=== PATIENT | male | born 1965 | race Caucasian/White ===

== ENCOUNTER → 2017-12-18 03:04 | Outpatient (CLI) | payer BC, SELFPAY ==
[2017-12-18 09:15] LABS: Cholesterol 183 mg/dL (50-200); HDL Cholesterol 35 mg/dL (40-60); LDL CHOLESTEROL 114 mg/dL (<100); Triglyceride 268 mg/dL (30-150)
== END ==
PROVIDERS: PCP Nurse Practitioner; Visit Provider Nurse Practitioner
DX: E78.5 Hyperlipidemia, unspecified (principal); I10 Essential (primary) hypertension
CPT/HCPCS: 36415; 80061; 83721

== ENCOUNTER 2019-02-21 02:18 | Outpatient (CLI) | payer BC, SELFPAY ==
[2019-02-21 07:38] LABS: Hemoglobin A1C 5.4 % (4.5-6.2)
[2019-02-21 07:55] LABS: ALT 42 U/L (16-63); AST 19 U/L (15-37); Albumin 4.2 g/dL (3.4-5.0); Alkaline Phosphatase 54 U/L (46-116); BUN 18 mg/dL (7-18); Bilirubin, Total 0.7 mg/dL (0.2-1.0); CREATININE 1.14 mg/dL (0.70-1.30); Calcium 9.8 mg/dL (8.5-10.1); Calculated LDL 115 mg/dL; Chloride 103 mmol/L (98-107); Cholesterol 194 mg/dL (50-200); Glucose 106 mg/dL (70-100); HDL Cholesterol 39 mg/dL (40-60); Potassium 3.8 mmol/L (3.5-5.1); Sodium 143 mmol/L (136-145); Total Protein 7.4 g/dL (6.4-8.2); Triglyceride 200 mg/dL (30-150)
== END 2019-02-21 02:38 ==
PROVIDERS: PCP Nurse Practitioner; Visit Provider Nurse Practitioner
DX: R73.01 Impaired fasting glucose (principal); I10 Essential (primary) hypertension; E78.5 Hyperlipidemia, unspecified; E66.9 Obesity, unspecified
CPT/HCPCS: 36415; 80053; 80061; 83036

== ENCOUNTER 2020-06-03 02:57 | Outpatient (CLI) | payer BC, SELFPAY ==
[2020-06-03 07:54] LABS: Hemoglobin A1C 5.3 % (<5.7)
[2020-06-03 08:11] LABS: ALT 43 U/L (16-63); AST 20 U/L (15-37); Albumin 4.2 g/dL (3.4-5.0); Alkaline Phosphatase 50 U/L (46-116); BUN 15 mg/dL (7-18); Bilirubin, Total 0.9 mg/dL (0.2-1.0); CREATININE 1.1 mg/dL (0.70-1.30); Calcium 9.7 mg/dL (8.5-10.1); Calculated LDL 113 mg/dL (<100); Chloride 104 mmol/L (98-107); Cholesterol 191 mg/dL (<200); Glucose 111 mg/dL (74-106); HDL Cholesterol 42 mg/dL (40-60); Potassium 3.7 mmol/L (3.5-5.1); Sodium 141 mmol/L (136-145); Total Protein 7.5 g/dL (6.4-8.2); Triglyceride 182 mg/dL (<150)
== END 2020-06-03 02:58 | disposition home or self-care (01) ==
LOC: LBO 02:57
PROVIDERS: PCP Nurse Practitioner; Visit Provider Nurse Practitioner
DX: I10 Essential (primary) hypertension (principal); E78.5 Hyperlipidemia, unspecified; R73.01 Impaired fasting glucose
CPT/HCPCS: 36415; 80053; 80061; 83036

== ENCOUNTER 2021-01-12 11:25 | Outpatient (CLI) | payer BC, SELFPAY ==
--- NOTE | 2021-01-12 11:15 | RT.EKG_ITS ---
APPROVED REPORT Exam: Resting ECG Reason for Exam: irregular heart rate. Patient Location: O HR:134 bpm ECG Measurements Heart Rate 134 AXIS NC [id number] P [id number] QRSd 92 QRS 14 QT 278 T 59 QTc 416 Conclusion Atrial fibrillation...V-rate 109-163, irreg A-activity Repol abnrm suggests ischemia, diffuse leads...ST-T neg, ant/lat/inf
== END 2021-01-12 11:26 | disposition home or self-care (01) ==
LOC: DI.KIM 11:26
PROVIDERS: PCP Nurse Practitioner; Visit Provider Nurse Practitioner
DX: I49.9 Cardiac arrhythmia, unspecified (principal)
CPT/HCPCS: 93010

== ENCOUNTER 2024-04-10 04:31 | Outpatient (CLI) | payer BC, SELFPAY ==
[2024-04-10 07:13] LABS: HCT 44.1 % (40.0-50.0); HGB 15.3 g/dL (13.5-17.5); MCH 31.6 pg (27.0-33.0); MCHC 34.7 % (32.0-36.0); MCV 91 fL (80-95); Platelet Count 205 10^3/uL (130-400); RBC 4.84 10^6/uL (4.36-5.78); RDW-SD 40.4 fL; WBC 8.07 10^3/uL (4.4-10.8)
[2024-04-10 07:47] LABS: ALT 29 U/L (16-63); AST 20 U/L (15-37); Alkaline Phosphatase 65 U/L (46-116); Anion Gap 2.1 mmol/L (3-11); BUN 16 mg/dL (7-18); Bilirubin, Total 0.82 mg/dL (0.2-1.0); CO2 28.9 mmol/L (21.0-32.0); CREATININE 1.1 mg/dL (0.70-1.30); Calcium 9.1 mg/dL (8.5-10.1); Calculated LDL 127 mg/dL (<100); Chloride 106 mmol/L (98-107); Cholesterol 200 mg/dL (<200); Estimated GFR 77.33 (mL/min/1.73m2); Glucose 111 mg/dL (74-106); HDL Cholesterol 45 mg/dL (40-60); Hemoglobin A1C 5.4 % (<5.7); Potassium 3.7 mmol/L (3.5-5.1); Sodium 137 mmol/L (136-145); Total Protein 7.7 g/dL (6.4-8.2); Triglyceride 144 mg/dL (<150)
== END 2024-04-10 04:32 | disposition home or self-care (01) ==
LOC: LBO 04:31
PROVIDERS: PCP Nurse Practitioner; Visit Provider Nurse Practitioner
DX: E78.5 Hyperlipidemia, unspecified (principal); I10 Essential (primary) hypertension; E66.9 Obesity, unspecified
CPT/HCPCS: 36415; 80053; 80061; 85027; 83036

== ENCOUNTER 2024-09-24 09:38 | Day surgery (SDC) | payer BC, SELFPAY ==
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
--- NOTE | 2024-09-23 19:36 | W.PM.DSUDISC ---
Date of service: 09/24/24 Discharge Plan Disposition Patient Disposition: Home Condition: Good Discharge Details Reason For Visit: umbilical hernia repair Attending Provider: Bigg Beyer Primary Care Provider: Poonam Holden Home Meds and New Rx's Prescriptions: New tramadol 50 mg tablet 50 mg PO Q8H PRNQty: 12 0RF Rx Instructions: Take 1 tablet by mouth up to every 8 hours if needed for more severe pain. Continued omega-3 fatty acids [Fish Oil Concentrate] 1,000 mg capsule 2,000 mg PO DAILY fluticasone propionate 50 mcg/actuation spray,suspension 2 spray NS BID Qty: 1 12RF amlodipine 10 mg tablet 10 mg PO DAILY Qty: 90 3RF lisinopril 40 mg tablet 40 mg PO DAILY Qty: 90 3RF multivitamin [Daily Vitamin] 1 EACH tablet 1 ea PO DAILY sotalol 160 mg tablet 160 mg PO BID Patient Comments: 03/25/22 Dr Patel aspirin 325 mg tablet,delayed release (DR/EC) 325 mg PO DAILY Discharge Instructions Instructions: Abdominal Hernia Repair, Laparoscopic Surgery Additional Instructions: Stanley, was great seeing you today, and I hope you have a quick and uneventful recovery from the procedure. The operation went very smoothly. You had quite a bit of omental fat within the hernia sac. Once this was all reduced out, I dissected free all of the sac, then close the defect with simple stitches. This was all reinforced with the mesh underlying the repair as we discussed before hand. Because of the amount of fat that was in the hernia trapped between the fascia and the skin, it is possible that you will develop a fluid collection around your bellybutton called a seroma. Hopefully that will not happen, but do not be alarmed if it does, they typically resorb over time without any type of intervention. As we discussed beforehand, it is like you to keep the lifting less than 5 to 10 pounds for the first 2 weeks or so. Will see how you are feeling in the office, and reassess at that point. You will see that there are a total of 4 incisions. One is extremely small, and just below the bellybutton. This was used to sneak in the sutures, as well as to bring the mesh up to the abdominal wall. The other incisions are above your bellybutton, and slightly off to the left side. These are where the laparoscopic instruments were used. It is extremely common for the sites to bruise, so do not be alarmed if that happens. If you need anything at all, please do not hesitate to ask, otherwise we look forward to seeing you at your follow-up visit on 1. Resume all of your regular medications. 2. Use ice packs over the incisions, or over your bellybutton if needed for pain and swelling. 3. Alternate [id number] Tylenol and ibuprofen every 6 hours for the first 2 days, then use them as needed. Use the prescription for tramadol if needed for more severe pain 4. Leave bandages in place for 24 hours, then remove. 5. Shower with warm soapy water. Pat dry. Use a bandaid if needed to protect your clothing. 6. No soaking or tub baths until I see you in the office. 7. No heavy lifting until I see you in the office. 8. Call the office (or go directly to the emergency room after hours) if you notice any of the following: Develop chills (warm to touch), or if you have a thermometer and your temperature is above 101 Difficulty breathing or difficultly swallowing Persistent vomiting Any bleeding ? exceeding one tablespoon 9. Call your physician if the site where your intravenous was started becomes red, swollen, painful, and warm to touch. Referrals: Bigg Beyer MD [ [facility] STAFF PHYSICIAN] - (October 10 at 8 AM) Activity:: no heavy lifting Remove Dressings/Wound Care:: 24 hours Shower/Bathe:: 24 hours Diet:: As Tolerated Discharge Orders Discharge Orders: Discharge Order (Routine); Ordered 09/23/24 Ordered By: Bigg Beyer DS: Diagnosis Discharge Diagnosis (1) Umbilical hernia: Status: Acute Asessment and Plan: Outpatient postoperative follow-up
--- NOTE | 2024-09-23 19:38 | W.PM.OP ---
Operative Note Operative Note PRE-OP DIAGNOSIS: umbilical hernia POST-OP DIAGNOSIS: same PROCEDURE: laparoscopic umbilical hernia repar with mesh SURGEON: Bigg Beyer SLICE CUTTING MACHINE OPERATOR: Masha Leggett ANESTHESIA TYPE: Local By Surgeon, General LMA/ETT and Other (Laparoscopic tap blocks) Refer to Anesthesia Record ESTIMATED BLOOD LOSS: 25 COMPLICATIONS: None Patient was transported to: PACU Patient's condition: stable Implants: [address] mesh Indications: Stanley is a 59-year-old male with a symptomatic and enlarging umbilical hernia Findings: Umbilical hernia with incarcerated omental fat Procedure Description: I met with Stanley before the operation, we discussed the intent of the surgery. He had the chance to ask any other questions. Next, we moved back to the operating room. He was assisted onto the OR table, general endotracheal anesthesia was initiated. The left arm was tucked, taking great care to padded and supported appropriately. Next, I prepped and draped the anterior abdominal wall. We started with a 5 mm incision in the left upper quadrant. Using a 5 mm optical viewing port, establish pneumoperitoneum under direct vision. Next, a 12 mm port was placed in the left mid abdomen. Under the vision of the laparoscope, I then performed bilateral tap blocks using local anesthetic mixed with Exparel. There was clearly an umbilical hernia with what appeared to be omental fat involved. I began by dissecting free the edge of the fat, where there were some thin adhesions. This was done with a combination of blunt dissection as well as the LigaSure. With gentle traction, I continued reducing significant amount of omental fat. In order to gain appropriate traction, another 5 mm port needed to be placed in the mid epigastrium. The umbilical ligament was divided dissected up to the falciform. I then anesthetized the skin and inserted a 5 mm port here. As it was clear that the hernia contained only omental fat, and in an effort to minimize bleeding, the omentum was divided with the LigaSure. Once this was complete, the remainder of the omental fat was all dissected free from the hernia sac. This devitalized omentum was then placed in an Endo Catch bag. I then circumferentially dissected the peritoneum off of the underside of the fascial edge, and carefully dissected all of the umbilical hernia sac out of the defect. This was carefully dissected away from the overlying soft tissue and skin taking great care to preserve it. Once the sac was completely dissected free, it was removed by way of the 12 mm port. I then made a small stab incision on the underside of the umbilicus, and gently dissected some of this tissue with a hemostat. Interrupted 0 PDS sutures were then used to close the umbilical fascial defect. This was done in a transverse fashion using a Rubin Nugent suture passer. Next, I selected a 15 cm round Bard ventral light ST hernia mesh to buttress the closure. It was delivered through the 12 mm port, and brought up to the anterior abdominal wall using the Audio Shack 2 positioning system. There was excellent overlap. It was affixed to the anterior abdominal wall with a laparoscopic tacking device. The positioning system was then removed. The 12 mm port was then removed through the left abdomen, an Endo Catch bag was subsequently brought out through the defect. The fascia of the left lower quadrant was closed under direct vision with interrupted 0 Vicryl sutures. And the skin was reapproximated with subcuticular stitches. The remaining 5 mm ports were removed, and the skin was reapproximated with subcuticular stitches. Band-Aids were applied, and Stanley was allowed awaken from the anesthetic and extubated prior to transfer to the recovery unit. Date of Procedure: 09/24/24
[2024-09-24] VITALS (20 sets, daily range): BP systolic 108–164; BP diastolic 54–100; PULSE 50–73; RESP 12–21; TEMP 36.4–36.7; O2SAT 95–100; BMI 34.1
[2024-09-24] MEDS: Lactated Ringers 1,000 ML 80 ML IV (10:26)
--- NOTE | 2024-09-24 10:31 | W.ANESPRE ---
General Info Date of Service Date Performed: 09/24/24 Height: 6 ft 4 in Weight: 127.3 kg Body Mass Index (BMI): 34.1 Surgical Procedure: Operation Date: 09/24/24 10:40 Proposed Procedure Side Surgeon p Hernia Umbilical Laparoscopic Bigg Beyer MD Meds Allergies and Home Medications Allergies Allergy/AdvReac Type Severity Reaction Status Date / Time No Known Allergies Allergy Verified 09/24/24 09:57 Home Medication ?Medication ?Instructions ?Recorded multivitamin (Daily Vitamin tablet) 1 ea PO DAILY 07/03/12 omega-3 fatty acids 1,000 mg 2,000 mg PO DAILY 06/09/20 capsule (Fish Oil Concentrate) sotalol 160 mg tablet 160 mg PO BID 03/29/22 aspirin 325 mg tablet,delayed 325 mg PO DAILY 07/13/23 release amlodipine 10 mg tablet 10 mg PO DAILY #90 tabs 06/25/24 fluticasone propionate 50 2 spray NS BID ##1 06/25/24 mcg/actuation nasal spray,suspension lisinopril 40 mg tablet 40 mg PO DAILY #90 tabs 06/25/24 Current Visit Medications: Current Medications Generic Name Dose Route Start Last Admin Trade Name Freq PRN Reason Stop Dose Admin Acetaminophen 1,000 mg 09/24/24 06:00 Acetaminophen 500 Mg Tab PO 09/24/24 23:59 PREOP ANTONY Gabapentin 600 mg 09/24/24 06:00 Gabapentin 300 Mg Cap PO 09/24/24 23:59 PREOP ANTONY Hydromorphone HCl 0.2 mg 09/23/24 19:39 Hydromorphone 2 Mg/Ml Syr IVP 10/23/24 19:38 Q1H PRN PRN Ringer's Solution 1,000 mls @ 80 mls/hr 09/24/24 06:00 09/24/24 10:26 IV 09/24/24 23:59 80 mls/hr INFUSION ANTONY Administration Cefazolin Sodium/Dextrose 2 gm in 50 mls @ 100 mls/hr 09/24/24 06:00 Ancef Duplex IVPB 09/24/24 23:59 PREOP ANTONY IV Miscellaneous Supplies 1 each 09/24/24 06:00 Iv Access IV 09/24/24 23:59 DIRECTED ANTONY Sodium Chloride 0 ml 09/24/24 06:00 Normal Saline Flush 10 Ml Syr IV 09/24/24 23:59 PRN PRN Sodium Chloride 0 ml 09/24/24 06:00 Normal Saline 10 Ml Vial IJ 09/24/24 23:59 DIRECTED PRN Sterile Water 0 ml 09/24/24 06:00 Water,Injection,Sterile 10 Ml Vial IJ 09/24/24 23:59 DIRECTED PRN Tramadol HCl 50 mg 09/23/24 19:39 Tramadol 50 Mg Tab PO 10/23/24 19:38 Q6H PRN PRN Pain PFSH Active Problems Active Problems: Problem Status Onset Code Umbilical hernia Acute K42.9 Dilated aortic root Acute 02/18/21 I77.810 Irregular heartbeat Acute I49.9 Unspecified essential hypertension Acute 09/06/12 I10 Paroxysmal atrial fibrillation Acute 09/12/12 I48.0 Obesity, unspecified Acute 03/12/12 E66.9 Impaired fasting glucose Acute 10/04/13 R73.01 Hyperlipidemia Acute 06/15/11 E78.5 Hypertension Acute 09/06/12 I10 Chronic rhinitis Acute 06/15/11 J31.0 Medical History Medical History Atrial fibrillation with rapid ventricular response 06/09/21 Cardiac Electrophisiology Persistent atrial fibrillation 09/23/21 Cardiology on waitlist for afib ablation, plan admission for sotalol History of cardioversion 03/17/21-[facility] [place] cardiology, Aleksandar Elizabeth MD Surgical History Surgical History S/P ablation of atrial fibrillation (02/2022) synovial cyst removed leg (10/08/14) Colonoscopy - IV Sedation (12/23/15) Tobacco Smoking/Tobacco Use Status: Never Passive smoking exposure: Yes Alcohol Alcohol Intake: current Alcohol intake frequency: a few times a month Substance Use Substance use: Never Substance use type: does not use Vital Signs and Lab Results Vital Signs Most Recent Vital Signs in EMR: Most Recent Vital Signs Temp Pulse Resp BP Pulse Ox 36.7 C 61 16 164/64 H 99 09/24/24 09:45 09/24/24 09:45 09/24/24 09:45 09/24/24 09:45 09/24/24 09:45 Lab Results Blood Type / Crossmatch: No Data to Display Complete Blood Count: No Data to Display Complete Metabolic Panel: No Data to Display Liver Function Panel: No Data to Display Coagulation Panel: No Data to Display Cardiac Panel: No Data to Display Arterial Blood Gas: No Data to Display Venous Blood Gas: No Data to Display Pancreas Panel: No Data to Display Thyroid Panel: No Data to Display Infectious Disease: No Data to Display Blood Cultures: No Data to Display Toxicology Panel: No Data to Display Anesthesia Assessment and Plan Anesthesia History Personal History: No History of Anesthesia Complications Family History: No Family History of Anesthesia Complications Exercise Tolerance Exercise Tolerance: Metabolic Equivalents>4 Pertinent Negatives Pertinent Negatives: No Symptoms of GERD Cardiac & Pulmonary Exam Cardiac Exam: Normal S1/S2 Heart Sounds Pulmonary Exam: Clear Bilateral Breath Sounds Implantable Cardiac Device Does patient have a Pacemaker or an ICD?: No Airway Exam Known Difficult Airway: No Mallampati Class: 2 Mouth Opening: Normal (> 3cm) Thyromental Distance: Greater than 3 cm Neck Range of Motion: Full ROM Neck Circumference: Normal Teeth Condition: Normal Dentition ASA Classification ASA Score: ASA 2 Emergency Case?: No NPO Status NPO Status: NPO Clears >2 hours, Solids >8 hours Anesthesia Plan Resuscitation Status: Full Code Anesthesia Technique: General Anesthesia Airway Planned: Endotracheal Tube Monitors Used: Standard Monitors
[2024-09-24] MEDS: Gabapentin 300 MG CAP 600 MG PO (10:41)
[2024-09-24] MEDS: Acetaminophen 500 MG TAB 1000 MG PO (10:41)
[2024-09-24] MEDS: ceFAZolin 2 GM/50 ML BAG IVPB (11:00)
[2024-09-24] MEDS: Bupivacaine LIPOSOME/PF 133 MG/10 ML VIAL IJ (11:14)
[2024-09-24] MEDS: Bupivacaine 0.25% Pres-Free 30 ML VIAL (11:14)
--- NOTE | 2024-09-24 13:42 | W.ANESPOSTOP ---
Postoperative Evaluation Date, Time and Location Date Performed: 09/24/24 Time Performed: 13:43 Patient Location: Day Surgery Unit Vital Signs Most Recent Imported Vital Signs: Most Recent Vital Signs Temp Pulse Resp BP Pulse Ox 36.6 C 50 L 15 124/75 98 09/24/24 12:59 09/24/24 13:06 09/24/24 13:06 09/24/24 13:06 09/24/24 13:06 Pain Score Most Recent Pain Score: Most Recent Pain Score Pain Level 4 09/24/24 12:59 Assessment Mental Status: Awake (Alert & Oriented to Patient Baseline) Airway and Respiratory Function: Patent airway with normal (patient baseline) respiratory exam Cardiovascular Function: Hemodynamically Stable Hydration Status: Adequately Hydrated Nausea & Vomiting: No Nausea or Vomiting Pain: Pt. Denies Any Pain Peripheral Nerve Block: Patient did not receive a nerve block
== END 2024-09-24 14:23 | disposition home or self-care (01) ==
LOC: SUR 09:39
PROVIDERS: PCP Nurse Practitioner; Visit Provider Surgery
PROC: (CPT 49650; principal; 2024-09-24 10:30)
DX: K42.9 Umbilical hernia without obstruction or gangrene (principal)
CPT/HCPCS: 49594; C1781; J0131; J0665; J0666; J0690; J1100; J1885; J2405; J2704; J3010